=== PATIENT | female | born 1960 | race Caucasian/White ===

== ENCOUNTER 2017-09-16 12:50 | Outpatient (CLI) | payer MEDICARE, MEDICAID | END 2017-09-16 12:51 | disposition home or self-care (01) | LOC: BICMAMMO 12:50 | PROVIDERS: ATTEND Student in an Organized Health Care Education/Training Program | DX: Z12.31 Encounter for screening mammogram for malignant neoplasm of breast (principal); R92.1 Mammographic calcification found on diagnostic imaging of breast; Z80.3 Family history of malignant neoplasm of breast | CPT/HCPCS: 77063; 77067 ==

== ENCOUNTER 2017-09-19 06:25 | Day surgery (SDC) | payer MEDICARE, MEDICAID ==
[2017-09-19] MEDS ORDERED: Albuterol Sulfate HFA (OR ONLY) ONE (09:26)
--- NOTE | 2017-09-19 10:47 | OP ---
DATE OF PROCEDURE: 09/19/2017 GI ENDOSCOPY NOTE SURGEON: Griffin Garcia M.D. BUSINESS [employer]ACTICES SUPERVISOR SURGEON: None. PROCEDURE: Colonoscopy for average risk screening. This is the patient's first colonoscopy. MEDICATIONS: See anesthesia record. FINDINGS: After discussion of the risks, benefits and alternatives of the procedure, informed consen t was obtained and verified. Pre-endoscopic cardiopulmonary examination was satisfactory. Timeout w as performed before sedation was achieved. Sedation was achieved with anesthesia assistance in the e ndoscopy unit. Digital rectal exam was performed which was unremarkable. A Pentax adult colonoscope was inserted into the anus and passed forward to the cecum in the usual fashion. The cecal base was identified by the appendiceal orifice as well as the ileocecal valve. The terminal ileum was intuba gabino and the ileal mucosa appeared normal. The colonoscope was then slowly withdrawn in a gradual and circumferential manner with careful examination of the entire colonic mucosa. The quality of the pr ep was adequate for examination. There was some particulate stool throughout the colon, but this was able to be manipulated and moved around for a good mucosal exam. The colonic mucosa appeared normal throughout with no evidence of any polyp or mass lesion. There was some scattered diverticulosis th roughout the colon with no evidence of diverticulitis. Retroflexion in the rectum was normal. The c olonoscope was then completely withdrawn and the patient allowed to recover. The patient tolerated t he procedure well. There were no immediate post-procedure complications. IMPRESSION: 1. Scattered diverticulosis, entire colon. 2. Otherwise normal colonoscopy to the terminal ileum. RECOMMENDATIONS: Repeat colonoscopy for screening in 10 years.
[2017-09-19] MEDS ORDERED: PROVENTIL INHALER 6.7 G (200 INHALATIONS) ONE (13:42)
[2017-09-19] MEDS ORDERED: PROPOFOL 200 MG/20 ML VIAL ONE (13:42)
== END 2017-09-19 10:15 | disposition home or self-care (01) ==
LOC: SDC 06:25
PROVIDERS: ATTEND Internal Medicine
PROC: 0DJD8ZZ Inspection of Lower Intestinal Tract, Via Natural or Artificial Opening Endoscopic (ICD-10-PCS; principal; 2017-09-19)
DX: Z12.11 Encounter for screening for malignant neoplasm of colon (principal); K57.30 Diverticulosis of large intestine without perforation or abscess without bleeding; F32.9 Major depressive disorder, single episode, unspecified; E11.9 Type 2 diabetes mellitus without complications; I10 Essential (primary) hypertension; E78.5 Hyperlipidemia, unspecified; R32 Unspecified urinary incontinence; E66.01 Morbid (severe) obesity due to excess calories; Z68.43 Body mass index [BMI] 50.0-59.9, adult; Z79.4 Long term (current) use of insulin; Z79.82 Long term (current) use of aspirin; Z79.899 Other long term (current) drug therapy
CPT/HCPCS: 36416; J2704

== ENCOUNTER 2018-09-17 10:06 | Outpatient (CLI) | payer MEDICAID ==
--- NOTE | 2018-09-17 11:45 | MMO ---
Bilateral MAMMO Bilat Screen [facility]. CLINICAL HISTORY: Patient is 58 years old and is seen for screening. The patient has no family history of breast cancer. The patient has no personal history of cancer. VIEWS: The views performed were: bilateral craniocaudal with tomosynthesis and bilateral mediolateral oblique with tomosynthesis. FILMS COMPARED: The present examination has been compared to prior imaging studies performed at [facility] on 06/21/2006, 02/18/2013, 10/05/2015 and 09/16/2017. MAMMOGRAM FINDINGS: There are scattered fibroglandular densities. There are stable benign appearing calcifications seen in both breasts. There are no suspicious masses, suspicious calcifications, or new areas of architectural distortion. IMPRESSION: THERE IS NO MAMMOGRAPHIC EVIDENCE OF MALIGNANCY. A ROUTINE FOLLOW-UP MAMMOGRAM IN 1 YEAR IS RECOMMENDED. THE RESULTS OF THIS EXAM WERE SENT TO THE PATIENT. ACR BI-RADS Category 2 - Benign finding MAMMOGRAPHY NOTE: 1. A negative mammogram report should not delay a biopsy if a dominant of clinically suspicious mass is present. 2. Approximately 10% to 15% of breast cancers are not detected by mammography. 3. Adenosis and dense breasts may obscure an underlying neoplasm.
== END 2018-09-17 10:07 | disposition home or self-care (01) ==
LOC: BICMAMMO 10:06
PROVIDERS: ATTEND Student in an Organized Health Care Education/Training Program
DX: Z12.31 Encounter for screening mammogram for malignant neoplasm of breast (principal)
CPT/HCPCS: 77063; 77067

== ENCOUNTER 2019-10-02 14:27 | Outpatient (CLI) | payer MEDICAID ==
--- NOTE | 2019-10-02 14:58 | MMO ---
Bilateral MAMMO Bilat Screen [facility]. CLINICAL HISTORY: Patient is 59 years old and is seen for screening. The patient has no family history of breast cancer. The patient has no personal history of cancer. VIEWS: The views performed were: bilateral craniocaudal and bilateral mediolateral oblique. FILMS COMPARED: The present examination has been compared to prior imaging studies performed at [facility] on 02/18/2013, 10/05/2015, 09/16/2017 and 09/17/2018. This study has been interpreted with the assistance of computer-aided detection. MAMMOGRAM FINDINGS: There are scattered fibroglandular densities. There are benign appearing calcifications seen in both breasts. There are no suspicious masses, suspicious calcifications, or new areas of architectural distortion. IMPRESSION: THERE IS NO MAMMOGRAPHIC EVIDENCE OF MALIGNANCY. A ROUTINE FOLLOW-UP MAMMOGRAM IN 1 YEAR IS RECOMMENDED. ACR BI-RADS Category 2 - Benign finding MAMMOGRAPHY NOTE: 1. A negative mammogram report should not delay a biopsy if a dominant of clinically suspicious mass is present. 2. Approximately 10% to 15% of breast cancers are not detected by mammography. 3. Adenosis and dense breasts may obscure an underlying neoplasm. Reported by: POWER MIRELES MD Electonically Signed: [id number]
== END 2019-10-02 14:28 | disposition home or self-care (01) ==
LOC: BICMAMMO 14:27
PROVIDERS: ATTEND Family Medicine
DX: Z12.31 Encounter for screening mammogram for malignant neoplasm of breast (principal)
CPT/HCPCS: 77067

== ENCOUNTER 2019-11-03 08:55 | Outpatient (CLI) | payer MEDICAID ==
[2019-11-04 11:36] LABS: SARS-CoV-2 MS2 Positive; SARS-CoV-2 N Gene Negative; SARS-CoV-2 S Gene Negative; SARS-CoV-2 by NAA Not Detected (NotDetected); SARS-CoV-2 orf1ab Negative
== END 2019-11-03 08:56 | disposition home or self-care (01) ==
LOC: LABSCS 08:55
PROVIDERS: ATTEND Family Medicine
DX: Z01.812 Encounter for preprocedural laboratory examination (principal); Z11.59 Encounter for screening for other viral diseases; G47.33 Obstructive sleep apnea (adult) (pediatric)
CPT/HCPCS: 87635; U0003

== ENCOUNTER 2020-04-29 14:59 | Outpatient (CLI) | payer MEDICARE, MEDICAID ==
--- NOTE | 2020-04-29 15:31 | RAD ---
RIGHT ANKLE THREE VIEW: 04/29/20 HISTORY: Pain. COMPARISON: Ankle radiograph 2013. FINDINGS: osteotomy change of the distal fibula diaphysis. There is diffusion of the medial tibiofibular joint and syndesmosis with multiple cortical screws. Arthrodesis now through the hindfoot extending into th e tibia, retrograde in nature, without hardware complication. 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 IMPRESSION: 1. Prior hindfoot arthrodesis without hardware complication. 2. High grade midfoot degenerative change. POS: AH
--- NOTE | 2020-04-29 15:31 | RAD ---
EXAM: 3 views of the right foot HISTORY: Foot pain COMPARISON: 02/09/2014 FINDINGS: 3 views of the right foot shows extensive hardware from prior tibiotalar fusion in the hind foot and distal leg. There is no evidence of acute fracture or dislocation. No perihardware lucency is seen. Moderate diffuse soft tissue swelling is seen. Moderate to severe midfoot degenerative dixon es are present. IMPRESSION: Extensive postsurgical changes of the foot without acute osseous abnormality.
== END 2020-04-29 15:00 | disposition home or self-care (01) ==
LOC: BICRAD 14:59
PROVIDERS: ATTEND Family Medicine
DX: M79.671 Pain in right foot (principal); Z98.890 Other specified postprocedural states; M19.071 Primary osteoarthritis, right ankle and foot

== ENCOUNTER 2021-04-27 14:02 | Outpatient (CLI) | payer OTHER, MEDICAID | END 2021-04-27 14:03 | disposition home or self-care (01) | LOC: BICMAMMO 14:02 | PROVIDERS: ATTEND Family Medicine | DX: Z12.31 Encounter for screening mammogram for malignant neoplasm of breast (principal) | CPT/HCPCS: 77063; 77067 ==

== ENCOUNTER 2022-05-14 13:27 | Outpatient (CLI) | payer OTHER, MEDICAID | END 2022-05-14 13:28 | disposition home or self-care (01) | LOC: BICMAMMO 13:27 | PROVIDERS: ATTEND Family Medicine | DX: Z12.31 Encounter for screening mammogram for malignant neoplasm of breast (principal) | CPT/HCPCS: 77063; 77067 ==